=== PATIENT | female | born 1990 | race Caucasian/White ===

== ENCOUNTER 2016-11-07 06:39 | Emergency (ER) | payer OTHER ==
[~2016-11-07 06:39] MED LIST: PNV1TABL25 PO
--- NOTE | 2016-11-07 07:18 | ED.ADGEN ---
Past History Past Medical History: Depression, Ovarian Cyst Past Surgical History: Other Alcohol Use: None Drug Use: None Adult General Chief Complaint Chief Complaint abdominal pain HPI HPI 26-year-old who is approximately 20 weeks by ultrasound presenting to the emergency department with abdominal pain. She reports that her has been otherwise uncomplicated. She reports a "normal" ultrasound prior. He denies any vaginal discharge or vaginal bleeding. She has been having mild cramping abdominal pain for the past 6 hours. It is nonradiating and not associated with fevers chills. She denies chest pain shortness of breath nausea or vomiting. Review of systems is negative for vaginal discharge vaginal bleeding recent trauma. She denies shortness of breath fevers or chills. All other review of systems is negative unless otherwise noted in history of present illness. Review of Systems Review of Systems SEE ABOVE. Allergies Allergies Allergies Coded Allergies Type Severity Reaction Last Updated Verified No Known Drug Allergies 07/29/16 No Physical Exam Physical Exam Constitutional: Well developed, well nourished, no acute distress, non-toxic appearance. HENT: Normocephalic, atraumatic, bilateral external ears normal, oropharynx moist, no oral exudates, nose normal. [] Eyes: PERRLA, EOMI, conjunctiva normal, no discharge. [] Neck: Normal range of motion, no tenderness, supple, no stridor. Cardiovascular:Heart rate regular rhythm, no murmur [] Lungs & Thorax: Bilateral breath sounds clear to auscultation Abdomen: Patient has a soft gravid abdomen with uterus approximately up to the umbilicus. heart tones present. Otherwise abdomen is soft and nontender. Negative McBurney's point. Negative Stanton sign. Skin: Warm, dry, no erythema, no rash. Back: No tenderness, no CVA tenderness. [] Extremities: No tenderness, no cyanosis, no clubbing, ROM intact, no edema. Neurologic: Alert and oriented X 3, normal motor function, normal sensory function, no focal deficits noted. [] Psychologic: Affect normal, judgement normal, mood normal. Current Patient Data Vital Signs Vital Signs Date Time Temp Pulse Resp B/P Pulse Ox O2 Delivery O2 Flow Rate FiO2 11/07/16 07:23 78 18 127/75 98 Room Air 11/07/16 06:40 97.6 EKG EKG [] Radiology/Procedures Radiology/Procedures [] Course & Med Decision Making Course & Med Decision Making Pertinent Labs and Imaging studies reviewed. (See chart for details) [] 26-year-old female presenting to the emergency department today with abdominal pain and . She is approximately 20 weeks by ultrasound. She has a mild cramping abdominal pain without vaginal bleeding or vaginal discharge. She denied chest pain or shortness of breath. Afebrile with a normal heart rate. Blood pressure normal. Saturating well on room air. Patient is comfortable in the exam room during my history and physical. Abdomen is soft and nontender. Nontender appendix. Nontender gallbladder. Given the patient's gestational age, I recommended the patient be transferred to labor and delivery unit for further evaluation workup and care. I discussed the case with [Dr. Santos]. I recommended EMS transfer however the patient strongly desired to leave by private vehicle. I explained some of the risks and benefits to both in the patient and her father here with her was comfortable with the plan. The patient was then transferred to her checkroom attendant's labor and delivery unit at [facility]. Formal paperwork was filled out. Accepting physician [Dr. Santos]. Final Impression Final Impression [] Abdominal pain in Problems: Dragon Disclaimer Dragon Disclaimer This electronic medical record was generated, in whole or in part, using a voice recognition dictation system. HINA YANCEY MD Nov 07, 2016 07:18
[2016-11-07 07:23] VITALS: BP 127/75
== END 2016-11-07 07:30 | disposition short-term general hospital (02) ==
LOC: ER 06:43
DX: O26.892 Other specified pregnancy related conditions, second trimester (principal); R10.9 Unspecified abdominal pain; Z3A.20 20 weeks gestation of pregnancy
CPT/HCPCS: 99285-25

== ENCOUNTER 2017-07-21 09:47 | Emergency (ER) | payer OTHER ==
[~2017-07-21] VITALS: Ht 157.5 cm; Wt 65.6 kg
--- NOTE | 2017-07-21 10:09 | PHYS DOC ---
General Chief Complaint: MECHANICAL FALL Stated Complaint: [facility] FALL, RT WRIST PAIN Time Seen by MD: 10:07 Source: patient Exam Limitations: no limitations Problems: History of Present Illness Initial Comments Patient is a 27-year-old female who comes to the ED complaining of fall injuries. Patient states that she must have fallen while at a friend's, she complains of left-sided face and right wrist pain. Patient appears to be altered, she is very slow to answer and answers "I don't know" to most questions. She denies taking any intoxicating substances and denies any daily medications. She denies any chronic medical problems and states she has a child at home. No focal neurologic deficits, no dizziness nausea. She does complain of a headache that is global and throbbing mild and nonprogressive. Occurred: other Severity: mild Injuries/Pain Location: head, face, upper extremity Context: unknown Loss of Consciousness: unsure Modifying Factors: worse with jarring, worse with movement, improves with rest Associated Symptoms: confusion, headache, other Allergies: Coded Allergies: No Known Drug Allergies (Unverified , 07/29/16) Past Medical History Medical History: no medical history Surgical History: noncontributory Social History Smoker: non-smoker Alcohol: none Drugs: none Review of Systems Constitutional: denies chills, denies diaphoresis, denies fever, denies malaise Eyes: denies blindness, denies blurred vision, denies foreign body sensation, denies photophobia Ears, Nose, Mouth, Throat: see HPI, denies ear discharge, denies nose discharge , denies epistaxis Respiratory: denies cough, denies shortness of breath Cardiovascular: denies chest pain, denies palpitations Gastrointestinal: denies abdominal pain, denies diarrhea, denies nausea, denies vomiting Musculoskeletal: see HPI Psychiatric/Neurological: see HPI Physical Exam General Appearance: WD/WN, no apparent distress Head: other (abrasions of the left face otherwise head is normocephalic atraumatic negative Rose sign negative raccoon eyes no ear or nose drainage no fluid behind TMs bilaterally, no scalp tenderness or skin breaks no palpable bony deformities or step-offs.) Eyes: bilateral eye normal inspection, bilateral eye PERRL, bilateral eye EOMI Ears, Nose, Mouth, Throat: hearing grossly normal, no evidence of ENT injury ( see above), no dental injury Neck: non-tender, full range of motion, normal alignment Gastrointestinal: non tender, soft Back: no CVA tenderness, no vertebral tenderness Extremities: other (generalized right wrist tenderness no swelling or focal bony tenderness range of motion is normal no snuffbox tenderness) Neurologic/Psychiatric: able bodied watchman II-XII nml as tested, no motor/sensory deficits, oriented x 3, other (lethargic, flat affect appears altered) Skin: normal color, warm/dry [place] Coma Score Best Eye Response: (4) open spontaneously Best Verbal Response: (5) oriented Best Motor Response: (6) obeys commands [place] Total: 15 Orders, Labs, Meds PATIENT: CAROLYN MCFARLAND ACCOUNT: [id number] : 1990 LOCATION: ER AGE: 27 SEX: F EXAM STATUS: REG ER ORD. PHYSICIAN: JAYESH LAGUNAS DO REASON: fall PROCEDURE: WRIST 3V RIGHT Three views WRIST 3V RIGHT Clinical History: fall Comparison: None. Findings: The visualized osseous structures appear normal. Impression: No acute findings. DICTATED AND SIGNED BY: LARA MORENO III, MD DATE: 07/21/17 1040 CC: NANCY GARCIA MD; JAYESH LAGUNAS DO ~ PATIENT: CAROLYN MCFARLAND ACCOUNT: [id number] : 1990 LOCATION: ER AGE: 27 SEX: F EXAM [id number] STATUS: REG ER ORD. PHYSICIAN: JAYESH LAGUNAS DO REASON: fall PROCEDURE: CT CERVICAL SPINE WO CONTRAST; CT HEAD AND MAXILLOFACIAL WO CT head without contrast: History: Pain status post fall. Comparison: none. Axial images were obtained without contrast. The monsalve and white matter appears normal and symmetrical for the patients age. There is no mass effect, extraaxial fluid collections or hydrocephalus. There is no gross bleed. Impression: No acute findings. End impression CT maxillofacial without contrast History: Pain status post fall Axial helical images of the face were obtained without contrast. Axial, sagittal and coronal reconstruction was performed. The nasal septum is mostly midline. The ostiomeatal complexes are narrow but patent. The paranasal sinuses are clear. The visualized osseous structures appear intact. The orbits appear normal. Impression: No acute findings. End impression CT C-Spine without contrast: Clinical History: fall Technique: Axial helical images of the cervical spine were obtained without contrast, axial coronal and sagittal reconstruction was performed. Findings: There is no loss of vertebral body stature. There is no prevertebral soft tissue swelling. The vertebral bodies are well aligned. The C1-C2 relationship is normal. The visualized osseous structures appear normal. There is straightening of the normal cervical lordosis which can be positional or can be secondary to muscle spasm. Evaluation of the central canal is limited without contrast. Impression: No acute findings. Impression PQRS Compliance Statement: One or more of the following individualized dose reduction techniques were utilized for this examination: 1. Automated exposure control 2. Adjustment of the mA and/or kV according to patient size 3. Use of iterative reconstruction technique DICTATED AND SIGNED BY: LARA MORENO III, MD DATE: 07/21/17 1041 CC: NANCY GARCIA MD; JAYESH LAGUNAS DO ~ PATIENT: CAROLYN MCFARLAND ACCOUNT: [id number] : 1990 LOCATION: ER AGE: 27 SEX: F EXAM [id number] STATUS: REG ER ORD. PHYSICIAN: JAYESH LAGUNAS DO REASON: fall PROCEDURE: CT CERVICAL SPINE WO CONTRAST; CT HEAD AND MAXILLOFACIAL WO CT head without contrast: History: Pain status post fall. Comparison: none. Axial images were obtained without contrast. The monsalve and white matter appears normal and symmetrical for the patients age. There is no mass effect, extraaxial fluid collections or hydrocephalus. There is no gross bleed. Impression: No acute findings. End impression CT maxillofacial without contrast History: Pain status post fall Axial helical images of the face were obtained without contrast. Axial, sagittal and coronal reconstruction was performed. The nasal septum is mostly midline. The ostiomeatal complexes are narrow but patent. The paranasal sinuses are clear. The visualized osseous structures appear intact. The orbits appear normal. Impression: No acute findings. End impression CT C-Spine without contrast: Clinical History: fall Technique: Axial helical images of the cervical spine were obtained without contrast, axial coronal and sagittal reconstruction was performed. Findings: There is no loss of vertebral body stature. There is no prevertebral soft tissue swelling. The vertebral bodies are well aligned. The C1-C2 relationship is normal. The visualized osseous structures appear normal. There is straightening of the normal cervical lordosis which can be positional or can be secondary to muscle spasm. Evaluation of the central canal is limited without contrast. Impression: No acute findings. Impression PQRS Compliance Statement: One or more of the following individualized dose reduction techniques were utilized for this examination: 1. Automated exposure control 2. Adjustment of the mA and/or kV according to patient size 3. Use of iterative reconstruction technique DICTATED AND SIGNED BY: LARA MORENO III, MD DATE: 07/21/17 1041 CC: NANCY GARCIA MD; JAYESH LAGUNAS DO ~ Urine hCG is negative, urine drug screen positive for amphetamine/ methamphetamine. I confirmed once again the patient had no daily medication prescriptions, when I advised her that her urine was positive for amphetamines she then stated that she takes a medication called phentermine for weight loss. She does not appear to be overweight or a candidate for phentermine however she is currently alert and oriented 3 and it exhibits UCAR capacity, I see no emergent condition or reason for admission or other further interventions at this time. I discussed the treatment plan verbally and provided in writing she expressed agreement and understanding. Departure Time of Disposition: 11:02 Disposition: 01 HOME, SELF-CARE Diagnosis: fall, concussion, left wrist sprain, abrasions Condition: GOOD Patient Instructions: Concussion and Brain Injury, [id number], RICE - Routine Care for Injuries, [id number] Additional Instructions: RICE, see handout. Please review the patient education materials given by ED staff. No work, athletics, or strenuous activity until cleared by your doctor. [id number] Tylenol as needed for discomfort. Follow-up with your doctor in 2-3 days for recheck and further activity restriction modifications. Return to ED with new or changing symptoms. JAYESH LAGUNAS DO Jul 21, 2017 10:09
[2017-07-21 10:10] VITALS: BP 127/75
--- NOTE | 2017-07-21 10:43 | RAD ---
Three views WRIST 3V RIGHT Clinical History: fall Comparison: None. Findings: The visualized osseous structures appear normal. Impression: No acute findings.
[2017-07-21 10:44] LABS: AMPHETAMINE/METHAMPHETAMINE POS (NEG); BARBITURATES NEG (NEG); BENZODIAZEPINES NEG (NEG); CANNABINOIDS NEG (NEG); COCAINE NEG (NEG); METHADONE NEG (NEG); OPIATES NEG (NEG); PHENCYCLIDINE NEG (NEG)
--- NOTE | 2017-07-21 10:52 | RAD ---
CT head without contrast: History: Pain status post fall. Comparison: none. Axial images were obtained without contrast. The monsalve and white matter appears normal and symmetrical for the patients age. There is no mass effect, extraaxial fluid collections or hydrocephalus. There is no gross bleed. Impression: No acute findings. End impression CT maxillofacial without contrast History: Pain status post fall Axial helical images of the face were obtained without contrast. Axial, sagittal and coronal reconstruction was performed. The nasal septum is mostly midline. The ostiomeatal complexes are narrow but patent. The paranasal sinuses are clear. The visualized osseous structures appear intact. The orbits appear normal. Impression: No acute findings. End impression CT C-Spine without contrast: Clinical History: fall Technique: Axial helical images of the cervical spine were obtained without contrast, axial coronal and sagittal reconstruction was performed. Findings: There is no loss of vertebral body stature. There is no prevertebral soft tissue swelling. The vertebral bodies are well aligned. The C1-C2 relationship is normal. The visualized osseous structures appear normal. There is straightening of the normal cervical lordosis which can be positional or can be secondary to muscle spasm. Evaluation of the central canal is limited without contrast. Impression: No acute findings. Impression PQRS Compliance Statement: One or more of the following individualized dose reduction techniques were utilized for this examination: 1. Automated exposure control 2. Adjustment of the mA and/or kV according to patient size 3. Use of iterative reconstruction technique
[2017-07-21] MEDS ORDERED: ACETAMINOPHEN 325 MG TABLET PO ONE (11:15)
== END 2017-07-21 11:19 | disposition home or self-care (01) ==
LOC: ER 09:47
DX: S06.0X0A Concussion without loss of consciousness, initial encounter (principal); S63.502A Unspecified sprain of left wrist, initial encounter; S00.81XA Abrasion of other part of head, initial encounter; W19.XXXA Unspecified fall, initial encounter; Y93.89 Activity, other specified; Y99.8 Other external cause status; Y92.89 Other specified places as the place of occurrence of the external cause
CPT/HCPCS: 36415; 70450; 70486; 72125; 73110; 80307; 81025; 99285-25; G0479

== ENCOUNTER → 2018-10-14 | Outpatient (CLI) | payer OTHER ==
--- NOTE | 2018-10-14 08:29 | RAD ---
EXAM: AP and lateral views of the right ankle DATE: 10/14/2018 12:00 AM INDICATION: Right ankle pain. Hyperextension injury. COMPARISON: No Prior FINDINGS: AP and lateral views of the right ankle are submitted. There is no evidence for acute fracture. Small ossicles inferior to the medial and lateral malleoli likely old fractures or accessory ossicles. Talar dome is grossly intact. Ankle mortise is congruent. Large ankle joint effusion. IMPRESSION: Large ankle joint effusion without evidence for acute fracture or dislocation. Electronically signed by: Yoav Balbuena MD (10/14/2018 8:26 AM) [id number]
== END | disposition home or self-care (01) ==
LOC: RAD 07:35
PROVIDERS: ATTEND Physician Assistant Medical
DX: M25.471 Effusion, right ankle (principal)
CPT/HCPCS: 73600